=== PATIENT | male | born 1985 ===

== ENCOUNTER → 2022-02-03 | Outpatient (CLI) | payer SELFPAY ==
[~2022-02-03] MED LIST: HYDHCL25 PO; PERM5TC TOP; PRED20 PO
[2022-02-07 07:09] LABS: CHLAMYDIA BY NAA Positive (Negative); GONOCOCCUS BY NAA Negative (Negative); TRICH VAG BY NAA Negative (Negative)
== END | disposition home or self-care (01) ==
LOC: LAB 18:08 → LAB SHORT 18:08
PROVIDERS: Registered Nurse Community Health
DX: Z20.2 Contact with and (suspected) exposure to infections with a predominantly sexual mode of transmission (principal)
CPT/HCPCS: 87491; 87591; 87661